=== PATIENT | female | born 1970 | race Caucasian/White ===

== ENCOUNTER 2019-08-31 07:04 | Emergency (ER) | payer OTHER ==
[~2019-08-31] VITALS: Ht 162.6 cm; Wt 81.6 kg
[2019-08-31 07:15] VITALS: BP_SYST 129
[2019-08-31 08:03] VITALS: BP_SYST 129
== END 2019-08-31 08:04 | disposition home or self-care (01) ==
LOC: SED 07:04
DX: Z76.0 Encounter for issue of repeat prescription (principal); R03.0 Elevated blood-pressure reading, without diagnosis of hypertension
CPT/HCPCS: 99281